=== PATIENT | female | born 1990 | race American Indian/Alaskan Native ===

== ENCOUNTER 2021-11-15 01:34 | Emergency (ER) | payer BC ==
[2021-11-15] MEDS ORDERED: Acetaminophen 325 MG Tab PO ONE (03:06)
[2021-11-15] MEDS ORDERED: Ondansetron 4 MG Tab.DIS PO ONE (03:27)
== END 2021-11-16 06:09 | disposition home or self-care (01) ==
LOC: DL.ED 01:34
DX: O20.9 Hemorrhage in early pregnancy, unspecified (principal); Z3A.08 8 weeks gestation of pregnancy; O20.8 Other hemorrhage in early pregnancy
CPT/HCPCS: 76815; 81001; 81003; 81025; 87086; 99284; A9270